=== PATIENT | male | born 1990 | race African-American/Black ===

== ENCOUNTER → 2023-09-18 | Emergency (ER) | payer SELFPAY ==
[~2023-09-18] MED LIST: LIDOCAINE 1% MPF 5 ML VIAL ONE; ONDANSETRON 4 MG (ODT) TAB ONE
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
[2023-09-18 04:12] VITALS: BP 115/75; O2SAT 99
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
== END ==
LOC: ER 00:16
PROC: 0HQ1XZZ Repair Face Skin, External Approach (ICD-10-PCS; principal; 2023-09-18)
DX: S01.81XA Laceration without foreign body of other part of head, initial encounter (principal); T59.3X3A Toxic effect of lacrimogenic gas, assault, initial encounter
CPT/HCPCS: 70450; 72125; 99284; J2001; Q0162

== ENCOUNTER → 2023-09-27 | Emergency (ER) | payer SELFPAY ==
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
--- NOTE | 2023-09-27 10:56 | ER ---
Nurse's Notes [facility] Name: Bala Poe Age: 32 yrs Sex: Male : 1990 Arrival Date: 09/27/2023 Time: 10:20 Bed IW1 Private MD: Diagnosis: Encounter for removal of sutures Presentation: 09/27 10:49 Chief complaint: Patient states: Needs sutures removed from forehead. Had them placed nj1 here 9 days ago. Coronavirus screen: Vaccine status: Patient reports receiving the 2nd dose of the covid vaccine. Ebola Screen: Patient denies travel to an Ebola-affected area in the 21 days before illness onset. Initial Sepsis Screen: Does the patient meet any 2 criteria? No. Patient's initial sepsis screen is negative. Does the patient have a suspected source of infection? No. Patient's initial sepsis screen is negative. Risk Assessment: Do you want to hurt yourself or someone else? Patient reports no desire to harm self or others. Onset of symptoms was September 18, 2023. 10:49 Method Of Arrival: Ambulatory [facility] 10:49 Acuity: VERNELL 5 nj Triage Assessment: 10:52 General: Appears in no apparent distress. comfortable, Behavior is calm, cooperative, nj1 appropriate for age. Pain: Denies pain. Historical: - Allergies: 10:51 No Known Allergies; nj1 - PMHx: 10:51 None; nj1 - Immunization history:: Client reports receiving the 2nd dose of the Covid vaccine. - Social history:: Smoking status: Patient reports the use of cigarette tobacco products, smokes one-half pack cigarettes per day. Screenin:00 [facility] ED Fall Risk Assessment (Adult) Score/Fall Risk Level 0 - 2 = Low Risk hb Oriented to surroundings, Maintained a safe environment. Abuse screen: Denies threats or abuse. Denies injuries from another. Nutritional screening: No deficits noted. Tuberculosis screening: No symptoms or risk factors identified. Assessment: 11:00 General: Appears in no apparent distress. Behavior is calm, cooperative. Neuro: Level hb of Consciousness is awake, alert, obeys commands, Oriented to person, place, time, situation. Cardiovascular: Patient's skin is warm and dry. Respiratory: Respiratory effort is even, unlabored, Respiratory pattern is regular, symmetrical. Vital Signs: 10:49 BP 138 / 83; Pulse 60; Resp 18; Temp 98.6(O); Pulse Ox 99% ; Weight 76.2 kg; Height 5 [facility] ft. 9 in. ; 10:49 Body Mass Index 24.81 (76.20 kg, 175.26 cm) [facility] ED Course: 10:43 Patient arrived in ED. rg4 10:47 [facility]ini [facility]ccullough FNP [facility] 10:47 Jb Briones MD is Attending Physician. [facility] 10:51 Triage completed. [facility] 10:52 Arm band placed on left wrist. [facility] 11:00 Patient has correct armband on for positive identification. Provided Education on: hb wound care, s/s of infection. 11:00 No provider procedures requiring assistance completed. Patient did not have IV access hb during this emergency room visit. Administered Medications: No medications were administered Medication: 11:00 VIS not applicable for this client. hb Outcome: 10:55 Discharge ordered by . [facility] 11:00 Discharged to home ambulatory, with family, 11:00 Condition: stable 11:00 Discharge instructions given to patient, Instructed on discharge instructions, follow up and referral plans. wound care, Demonstrated understanding of instructions, follow-up care, wound care, 11:01 Patient left the ED. hb Signatures: Christel Vee, RN RN Leilani Guad[facility] Destini Mccullough FNP SALES OUTFITTER [facility] Jannet Moore RN RN [facility]
[2023-09-27 11:08] VITALS: BP 138/83; TEMP 98.6; O2SAT 99
== END ==
LOC: ER 10:20
DX: Z48.02 Encounter for removal of sutures (principal)
CPT/HCPCS: 99282